=== PATIENT | female | born 1965 | race Caucasian/White ===

== ENCOUNTER 2023-04-18 07:58 | Outpatient (AMB) | payer BC, SELFPAY ==
[2023-04-18 08:15] VITALS: BP 130/80; PULSE 81; TEMP 36.7; O2SAT 97; BMI 36.2
--- NOTE | 2023-04-18 08:15 | MHC.OFFWIV ---
Intake Vital Signs 04/18/23 08:15 Height 5 ft 2 in Weight 198 lb BMI 36.2 BP 130/80 Blood Pressure Location Rt brachial Position Sitting Pulse 81 Pulse Source Pulse Oximeter Temp 98.0 F Temp Source Temporal Artery Scan Pulse Oximetry (%) 97 Oxygen Delivery Method Room Air Intake Visit Reasons: EST/ear infection Intake Note: pt is here for c/o ear infection with fever Patient Tobacco Use Status: Never used Tobacco Allergies penicillin V Allergy (Unknown, Verified 04/18/23 08:16) rash Do you need a note to return to daycare/school/sports/work: Yes HPI HPI Comments History of Present Illness Details This is a 57-year-old female who presents to the office today for sick visit. Patient complaining of bilateral ear pain x1 week in the setting of viral URI symptoms. Patient had a 102F fever last night. She denies any chest pain or shortness of breath. She denies any abdominal pain, nausea/vomiting/diarrhea, or lightheadedness/dizziness. Review of Systems Const All systems reviewed & are unremarkable except as noted in HPI and below Reports no additional complaints Eyes Reports no additional complaints ENT Reports no additional complaints Card Reports no additional complaints Resp Reports no additional complaints GI Reports no additional complaints Reports no additional complaints Musc Reports no additional complaints Skin/Breast Reports system reviewed and no additional complaints, except as documented Neuro Reports no additional complaints Psych Reports no additional complaints Endo Reports no additional complaints Jeison/Lymph Reports no additional complaints Aller/Immun Reports no additional complaints Physical Exam Vital Signs: BMI result Body Mass Index 36.2 Const Other: Vital signs reviewed. Constitutional: Non-toxic appearing. No acute distress. Well-developed and well-nourished. HEENT: Normocephalic and atraumatic. Erythema and edema of bilateral tympanic membranes as well as external auditory canals. Moist mucous membranes. No pharyngeal erythema or exudates. No mastoid tenderness to palpation, mass, swelling, or erythema bilaterally. Skin: Warm and dry. No rashes or lesions noted. Neck: Full and painless range of motion. No cervical lymphadenopathy. Cardio: Regular rate. No lower extremity edema. No JVD. Pulmonary: No respiratory distress. No accessory muscle usage. Clear to auscultation bilaterally without wheezing, crackles, or rhonchi. Gastrointestinal: Soft, nontender, and nondistended in all 4 quadrants. Musculoskeletal: Normal range of motion in joints throughout the body. No deformity or other signs of injury. Neuro: Alert and oriented x4. Cranial nerves 2-12 grossly intact. No focal deficits appreciated. Psych: Normal mood and affect. Assessment & Plan Assessment & Plan (1) Upper respiratory tract infection: Code(s): J06.9 - Acute upper respiratory infection, unspecified (2) Otitis media of both ears: Code(s): H66.93 - Otitis media, unspecified, bilateral Plan This is a 57-year-old female presenting to the office complaining of bilateral otalgia in the setting of viral URI symptoms. History and physicalmost consistent with acute respiratory tract infection in bilateral otitis media. Recommended symptomatic management including rest, increased fluids, advil/tylenol for pain/fever, and over the counter throat lozenges/decongestants. Patient sent home on PO cefdinir 300 mg twice daily x7 days. She has a penicillin allergy liste d but states that she has had a cephalosporin in the past.Patient advised to follow up here or go to the emergency room for worsening/persistent symptoms. Patient verbalized understanding and is agreeable with the plan. Medications: New cefdinir 300 mg PO BID 14 caps 0RF Coding Level of Care Code Est Pt Level 3 (63755) Diagnoses Upper respiratory tract infection J06.9 Otitis media of both ears H66.93
== END 2023-04-18 08:51 | disposition home or self-care (01) ==
PROVIDERS: PCP Nurse Practitioner Family; Visit Provider Physician Assistant Medical
DX: J06.9 Acute upper respiratory infection, unspecified (principal); H66.93 Otitis media, unspecified, bilateral
CPT/HCPCS: 99213

== ENCOUNTER 2023-04-24 15:33 | Outpatient (AMB) | payer BC, SELFPAY ==
--- NOTE | 2023-04-24 15:42 | AM.OFFWIN_ITS ---
Intake Vital Signs 04/24/23 15:43 Weight 198 lb BP 120/92 H Blood Pressure Location Rt brachial Position Sitting Pulse 98 Pulse Source Pulse Oximeter Temp 100.1 F Temp Source Oral Pulse Oximetry (%) 96 Oxygen Delivery Method Room Air Intake Visit Reasons: EP Ear infection/Finished meds/No better Intake Note: Patient here for ear infection that has been present since apr 12 and was given antibiotics which seemed to help at first and then it came back. Patient Tobacco Use Status: Never used Tobacco Allergies penicillin V Allergy (Unknown, Verified 04/24/23 15:44) rash Do you need a note to return to daycare/school/sports/work: No HPI HPI Comments History of Present Illness Details 57-year-old female that presents for you r pain. Patient was seen evaluated diagnosed with otitis media bilaterally in prescribe cefdinir. Today is day 7 and she was starting to get better but developed a fever last night and worsening ear pain. PFSH Social History Patient Tobacco Use Status: Never used Tobacco Review of Systems ENT Reports otalgia Physical Exam Vital Signs: Last Vital Signs Temp 100.1 F 04/24/23 15:43 Pulse 98 04/24/23 15:43 BP 120/92 H 04/24/23 15:43 Pulse Ox 96 04/24/23 15:43 Oxygen Delivery Method Room Air 04/24/23 15:43 Const General: healthy appearing, comfortable, no acute distress and alert Orientation/consciousness: patient oriented x3 Limitations: no limitations HEENT Other: TMs bilaterally with bulging and erythema. Mild erythema in the canals. No tragal tenderness Head: Yes normal to inspection Ears: hearing grossly normal bilaterally Resp Effort & Inspection: normal respiratory effort and able to speak in complete sentences Cardio Rate: regular rate Skin General skin exam: no rashes or lesions noted Neuro General: patient oriented x3 Extrem General: Yes normal to inspection Assessment & Plan Assessment & Plan (1) Otitis media: Code(s): H66.90 - Otitis media, unspecified, unspecified ear Qualifiers: Otitis media type: unspecified Chronicity: acute Qualified Code(s): H66.90 - Otitis media, unspecified, unspecified ear (2) Otitis externa: Code(s): H60.90 - Unspecified otitis externa, unspecified ear Qualifiers: Otitis externa type: unspecified type Chronicity: acute Laterality: bilateral Qualified Code(s): H60.503 - Unspecified acute noninfective otitis externa, bilateral Plan Giving worsening symptoms discussed switching antibiotics with patient. Long discussion occurred patient chart says she has allergy to penicillins however it was a small rash when she was younger and she denies any signs and symptoms of anaphylaxis. She states she believes she has had Augmentin in the past before. Will switch to first-line agent Augmentin also given signs and concern for otitis externa will add on Polytrim ear drops. Will also recommend cetirizine for effusion. Discharge instructions, follow up and treatment are discussed with patient in my usual fashion. Alternatives in treatment are also discussed. The patient will return for worsening symptoms or as needed. Advised that any labs/imaging ordered will be followed up on and contact made if further treatment needed. Counseled that patient's condition may require further evaluation and/or treatment. Symptoms of concern for worsening disorder discussed in detail in my customary manner. Patient does verbalize understanding of the plan, there are no apparent barriers to communication. The patient is given the opportunity to ask questions and have them answered to his/her satisfaction Medications: New amoxicillin-pot clavulanate 875-125 mg 1 tab PO BID 10 days 20 tabs 0RF [id number] 3.5-10,000-1 mg/mL-unit/mL-% 4 drps otic (ear) left Q8H 10 mL 0RF Discontinued cefdinir Discontinued Reason: Doctor's Order 300 mg PO BID 14 caps 0RF Coding Level of Care Code Est Pt Level 3 (03107) Diagnoses Acute otitis media, unspecified otitis media type H66.90 Otitis media type: unspecified Chronicity: acute Acute otitis externa of both ears, unspecified type H60.503 Otitis externa type: unspecified type Chronicity: acute Laterality: bilateral
[2023-04-24 15:43] VITALS: BP 120/92; PULSE 98; TEMP 37.8; O2SAT 96
== END 2023-04-24 16:28 | disposition home or self-care (01) ==
PROVIDERS: PCP Nurse Practitioner Family; Visit Provider Physician Assistant
DX: H66.90 Otitis media, unspecified, unspecified ear (principal); H60.503 Unspecified acute noninfective otitis externa, bilateral
CPT/HCPCS: 99213